=== PATIENT | female | born 1970 | race Caucasian/White ===

== ENCOUNTER 2023-11-04 12:22 | Outpatient (CLI) | payer OTHER | END 2023-11-04 12:23 | disposition home or self-care (01) | LOC: CSHRAD 12:22 | PROVIDERS: ATTEND Neurological Surgery | DX: M47.22 Other spondylosis with radiculopathy, cervical region (principal) | CPT/HCPCS: 72040 ==

== ENCOUNTER 2023-11-14 10:14 | Outpatient (CLI) | payer OTHER | END 2023-11-14 10:15 | disposition home or self-care (01) | LOC: CSHRAD 10:14 | PROVIDERS: ATTEND Neurological Surgery | DX: M50.123 Cervical disc disorder at C6-C7 level with radiculopathy (principal); M47.22 Other spondylosis with radiculopathy, cervical region; M47.23 Other spondylosis with radiculopathy, cervicothoracic region | CPT/HCPCS: 72050 ==